=== PATIENT | male | born 2000 | race American Indian/Alaskan Native ===

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

== ENCOUNTER 2022-04-08 09:31 | Emergency (ER) | payer BC ==
[2022-04-08 10:12] VITALS: BP 159/71
--- NOTE | 2022-04-08 10:48 | Emergency Department Report ---
ED ENT HPI - General Chief complaint: Pain General Stated complaint: EAR ACHE/PAIN Time Seen by Provider: 04/08/22 10:41 Source: patient Mode of arrival: Ambulatory Limitations: No Limitations - History of Present Illness Initial comments: 21-year-old with no past medical history presents to the emergency department for evaluation of 2-day history of ear pain. He states that he has not had fever, runny nose, congestion, or drainage from his ear but he has had a headache. He states that he has not taken any medication for symptoms. MD complaint: ear pain -: Gradual, days(s) (2) Location: R ear Severity: mild Severity scale (0 -10): 4 Quality: aching Consistency: intermittent Associated Symptoms: denies: fever, cough, gum swelling, toothache, pain with swallowing, sore throat, tinnitus, hearing loss, discharge from ear, rhinorrhea - Related Data Previous Rx's Medication Instructions Recorded Last Taken Type Ciprofloxacin/Hydrocortisone 3 drop RTEAR BID 7 Days #1 bottle 04/08/22 Unknown Rx [Ciprofloxacin HC OTIC] Allergies Allergy/AdvReac Type Severity Reaction Status Date / Time No Known Allergies Allergy Verified 04/08/22 10:11 ED Dental HPI - General Chief complaint: Pain General Stated complaint: EAR ACHE/PAIN Time Seen by Provider: 04/08/22 10:41 Source: patient Mode of arrival: Ambulatory Limitations: No Limitations - Related Data Previous Rx's Medication Instructions Recorded Last Taken Type Ciprofloxacin/Hydrocortisone 3 drop RTEAR BID 7 Days #1 bottle 04/08/22 Unknown Rx [Ciprofloxacin HC OTIC] Allergies Allergy/AdvReac Type Severity Reaction Status Date / Time No Known Allergies Allergy Verified 04/08/22 10:11 ED Review of Systems ROS: Stated complaint: EAR ACHE/PAIN Other details as noted in HPI Comment: All other systems reviewed and negative Constitutional: denies: chills, fever, malaise ENT: ear pain. denies: congestion Respiratory: denies: cough Cardiovascular: denies: chest pain Gastrointestinal: denies: abdominal pain, nausea, vomiting Neurological: headache. denies: weakness ED Past Medical Hx - Past Medical History Previous Medical History?: No - Surgical History Past Surgical History?: No - Social History Smoking Status: Never Smoker - Medications Home Medications: Home Medications Medication Instructions Recorded Confirmed Last Taken Type Ciprofloxacin/Hydrocortisone 3 drop RTEAR BID 7 Days #1 bottle 04/08/22 Unknown Rx [Ciprofloxacin HC OTIC] ED Physical Exam - General Limitations: No Limitations General appearance: alert, in no apparent distress - Head Head exam: Present: atraumatic, normocephalic - Eye Eye exam: Present: normal appearance. Absent: scleral icterus, conjunctival injection, periorbital swelling, periorbital tenderness - Expanded ENT Exam Expanded TM/Canal exam: Canal Discharge: Right TM, Canal Tenderness: Right TM (Noted to have erythema along the entire length of canal also) Mouth exam: Present: normal external inspection Throat exam: Positive: normal inspection. Negative: tonsillar erythema, tonsillomegaly, tonsillar exudate, R peritonsillar mass, L peritonsillar mass - Neck Neck exam: Present: normal inspection, tenderness. Absent: lymphadenopathy (Right side only) - Respiratory Respiratory exam: Absent: respiratory distress - Cardiovascular Cardiovascular Exam: Present: regular rate - GI/Abdominal GI/Abdominal exam: Absent: distended - Extremities Exam Extremities exam: Present: normal inspection - Back Exam Back exam: Present: normal inspection. Absent: CVA tenderness (R), CVA tenderness (L) - Neurological Exam Neurological exam: Present: alert, oriented X3, normal gait - Psychiatric Psychiatric exam: Present: normal affect, normal mood - Skin Skin exam: Present: warm, dry, intact, normal color ED Course Vital Signs 04/08/22 10:08 Temperature 98.9 F Pulse Rate 72 Respiratory 18 Rate Blood Pressure 159/71 O2 Sat by Pulse 98 Oximetry ED Medical Decision Making - Medical Decision Making 21-year-old with no past medical history presents to the emergency department for evaluation of 2-day history of ear pain. He states that he has not had fever, runny nose, congestion, or drainage from his ear but he has had a headache. He states that he has not taken any medication for symptoms. Exam and complaint consistent with right otitis externa. Patient will be treated with ciprofloxacinhydrocortisone drops 3 drops twice a day for 7 days. He is advised to follow-up with primary care provider if no improvement or worsening symptoms or return to the emergency department as needed. He verbalizes understanding of and agreement with plan of care. Critical care attestation.: If time is entered above; I have spent that time in minutes in the direct care of this critically ill patient, excluding procedure time. ED Disposition Clinical Impression: Right otitis externa Qualifiers: Otitis externa type: unspecified type Chronicity: acute Qualified Code(s): H60.501 - Unspecified acute noninfective otitis externa, right ear Disposition: HOME / SELF CARE / HOMELESS Is pt being admited?: No Does the pt Need Aspirin: No Condition: Stable Instructions: Ear Drops, Adult, [id number], Otitis Externa, [id number] Additional Instructions: Use medication as prescribed. Use ibuprofen and Tylenol as needed for pain. Follow-up with your primary care provider if no improvement or worsening symptoms. Return to the emergency department as needed. Prescriptions: Ciprofloxacin/Hydrocortisone [Ciprofloxacin HC OTIC] 3 drop RTEAR BID 7 Days #1 bottle Referrals: CHIQUI MONTILLA MD [Staff Physician] - 3-5 Days JIGAR العلي MD [Referring] - 3-5 Days Forms: Work/School Release Form(ED) Time of Disposition: 10:54
== END 2022-04-08 11:09 | disposition home or self-care (01) ==
LOC: ED 09:31
DX: H60.91 Unspecified otitis externa, right ear (principal)
CPT/HCPCS: 99282